=== PATIENT | female | born 1965 | race African-American/Black ===

== ENCOUNTER 2017-07-29 11:52 | Emergency (ER) | payer MEDICAID ==
[~2017-07-29] VITALS: Ht 1604.7 cm; Wt 86.0 kg
[2017-07-29 13:58] LABS: BASOPHILS # (AUTO) 0.1 X10'3 (0-0.2); BASOPHILS % (AUTO) 0.6 % (0-1); EOSINOPHILS # (AUTO) 0.1 X10'3 (0-0.9); EOSINOPHILS % (AUTO) 0.6 % (0-6); HEMOGLOBIN 14.7 g/dl (12.0-16.0); LYMPHOCYTES # (AUTO) 2.4 X10'3 (1.1-4.8); MEAN CORPUSCULAR HEMOGLOBIN 27.4 PG (27.0-31.0); MEAN CORPUSCULAR HGB CONC 32.7 % (33.0-36.5); MEAN CORPUSCULAR VOLUME 83.8 FL (78-98); MEAN PLATELET VOLUME 7.5 FL (7.4-10.4); MONOCYTES # (AUTO) 0.4 X10'3 (0-0.9); MONOCYTES % (AUTO) 3.6 % (2-12); NEUTROPHILS # (AUTO) 8.5 X10'3 (1.8-7.7); NEUTROPHILS % (AUTO) 74.2 % (42-75); PLATELET COUNT 343 X10'3 (140-440); RED BLOOD COUNT 5.37 X10'6 (4.20-5.60); WHITE BLOOD COUNT 11.4 X10'3 (4.5-11.0)
[2017-07-29 14:23] LABS: ALANINE AMINOTRANSFERASE 48 U/L (12-78); ALBUMIN 4.5 G/DL (3.4-5.0); ALKALINE PHOSPHATASE 103 IU/L (46-116); ANION GAP 10 (8-16); ASPARTATE AMINO TRANSFERASE 23 U/L (10-37); BLOOD UREA NITROGEN 12 MG/DL (7-18); BUN/CREATININE RATIO 14.8 (6.6-38.0); CALCIUM 9.6 MG/DL (8.5-10.1); CHLORIDE 100 MMOL/L (99-107); CREATININE 0.81 MG/DL (0.40-0.90); GLUCOSE 183 MG/DL (70-104); POTASSIUM 3.8 MMOL/L (3.5-5.1); SODIUM 140 MMOL/L (135-145); TOTAL CARBON DIOXIDE 30.2 MMOL/L (24-32); eGFR 75 ML/MIN
[2017-07-29 14:26] LABS: ETHANOL < 0.010 GM/DL (0.0-0.010)
[2017-07-29 14:38] LABS: URINE HCG NEGATIVE (NEG)
[2017-07-29 14:45] LABS: CLARITY,URINE CLEAR (Clear); COLOR,URINE YELLOW (Yellow); GLUCOSE, URINE NEGATIVE (Neg); KETONES,URINE NEGATIVE (Neg); LEUKOCYTE ESTERASE ,URINE NEGATIVE (Neg); NITRITES, URINE NEGATIVE (Neg); OCCULT BLOOD,URINE MODERATE (Neg); PROTEIN,URINE NEGATIVE (Neg); UROBILINOGEN,URINE 0.2 E.U/dL (0.2-1.0)
[2017-07-29 14:49] LABS: UA COLLECTION TYPE CLN CATCH MIDSTREAM
[2017-07-29 14:51] LABS: URINE AMPHETAMINE SCREEN NEGATIVE (Neg); URINE BARBITUATE SCREEN NEGATIVE (Neg); URINE BENZODIAZEPINES SCREEN NEGATIVE (Neg); URINE CANNABINOID SCREEN NEGATIVE (Neg); URINE COCAINE SCREEN NEGATIVE (Neg); URINE METHADONE SCREEN NEGATIVE (Neg); URINE OPIATE SCREEN NEGATIVE (Neg); URINE PHENCYCLIDINE SCREEN NEGATIVE (Neg)
[2017-07-29 14:52] LABS: BACTERIA,URINE NONE SEEN /HPF (Neg); RBC,URINE 0-2 /HPF (0-2); SQUAMOUS EPITHELIAL CELL,UR FEW /LPF (FEW); WBC,URINE 0-4 /HPF (0-4)
[2017-07-29] MEDS ORDERED: METO-384 PO (16:34)
[2017-07-29] MEDS ORDERED: NPH,100V SQ (16:34)
[2017-07-29] MEDS ORDERED: OLAN5TAB5 PO (16:34)
[2017-07-29] MEDS ORDERED: metoprolol tartrate 25mg tablet PO ONE (17:25)
[2017-07-29] MEDS ORDERED: risperiDONE 2mg tablet PO SCH (17:30)
[2017-07-29] MEDS: NPH, human insulin isophane inj. SQ SCH (18:50)
[2017-07-29] MEDS ORDERED: risperiDONE 2mg tablet PO ONE (20:00)
[2017-07-29] MEDS ORDERED: LORazepam 1 MG tablet PO STA (20:42)
[2017-07-30] MEDS: risperiDONE 0.5mg tablet PO SCH ×2 (08:03→19:45)
[2017-07-30] MEDS: NPH, human insulin isophane inj. SQ SCH ×2 (08:05→17:55)
[2017-07-30] MEDS ORDERED: LORazepam 1 MG tablet PO ONE ×2 (08:05→19:40)
[2017-07-30] MEDS: metoprolol succinate 25mg (24-HOUR) SR. Tablet PO SCH (08:11)
[2017-07-31] MEDS ORDERED: traZODone 50mg tablet PO ONE
[2017-07-31] MEDS ORDERED: haloperidol lactate 5mg/ml inj IM ONE ×2 (04:10→06:55)
[2017-07-31] MEDS ORDERED: LORazepam 2 mg/ml vial IM ONE ×2 (04:10→06:55)
[2017-07-31] MEDS: metoprolol succinate 25mg (24-HOUR) SR. Tablet PO SCH (08:05)
[2017-07-31] MEDS: risperiDONE 0.5mg tablet PO SCH ×2 (08:05→20:17)
[2017-07-31] MEDS: NPH, human insulin isophane inj. SQ SCH ×2 (08:56→20:28)
[2017-07-31] MEDS ORDERED: traZODone 150mg tablet PO STA (20:16)
[2017-07-31] MEDS ORDERED: LORazepam 1 MG tablet PO ONE (20:20)
[2017-08-01] MEDS: risperiDONE 0.5mg tablet PO SCH ×2 (08:54→20:30)
[2017-08-01] MEDS: metoprolol succinate 25mg (24-HOUR) SR. Tablet PO SCH (08:54)
[2017-08-01] MEDS: NPH, human insulin isophane inj. SQ SCH ×2 (08:54→17:45)
[2017-08-01] MEDS: traZODone 150mg tablet PO SCH (23:57)
[2017-08-02] MEDS: NPH, human insulin isophane inj. SQ SCH ×2 (07:30→17:20)
[2017-08-02] MEDS: risperiDONE 0.5mg tablet PO SCH ×2 (07:36→19:56)
[2017-08-02] MEDS: metoprolol succinate 25mg (24-HOUR) SR. Tablet PO SCH (07:36)
[2017-08-02] MEDS: traZODone 150mg tablet PO SCH (19:56)
[2017-08-02] MEDS ORDERED: traZODone 150mg tablet PO SCH (20:00)
[2017-08-03] MEDS: NPH, human insulin isophane inj. SQ SCH (07:30)
[2017-08-03] MEDS: metoprolol succinate 25mg (24-HOUR) SR. Tablet PO SCH (08:29)
[2017-08-03] MEDS: risperiDONE 0.5mg tablet PO SCH ×2 (08:29→21:02)
[2017-08-03] MEDS ORDERED: dextrose 50%-water 50ml dispensing syringe IV PRN ×2 (08:40)
[2017-08-03] MEDS ORDERED: glucagon, human recombinant 1mg kit SUBCUT PRN (08:40)
[2017-08-03] MEDS ORDERED: dextrose ORAL solution 15 GM/59 ML bottle PO PRN ×2 (08:40)
[2017-08-03] MEDS ORDERED: [UNRECOGNIZED DRUG - OTHER] SQ SCH (19:34)
[2017-08-03] MEDS ORDERED: RISP1TAB13 PO (20:53)
[2017-08-03] MEDS ORDERED: TRAZ-143 PO (20:54)
[2017-08-03] MEDS: traZODone 150mg tablet PO SCH (21:03)
[2017-08-03 22:31] VITALS: BP 149/94
== END 2017-08-03 22:38 | disposition home or self-care (01) ==
LOC: ER 11:53
DX: F23 Brief psychotic disorder (principal); E10.65 Type 1 diabetes mellitus with hyperglycemia; I10 Essential (primary) hypertension; Z79.899 Other long term (current) drug therapy
CPT/HCPCS: 36415; 80053; 80305; 80320; 81001; 81025; 82948; 83605; 84443; 85025; 87040; 96372; 99285

== ENCOUNTER 2020-05-29 00:16 | Emergency (ER) | payer MEDICAID ==
[~2020-05-29] VITALS: Ht 167.6 cm; Wt 67.3 kg
[~2020-05-29 00:16] MED LIST: ERGO500041 PO; ERTU15TA PO; METF1000 PO; METO100T7 PO
[2020-05-29] MEDS ORDERED: normal saline 1000ml 1,000 ML IV ONE ×2 (01:15→02:15)
[2020-05-29 01:26] LABS: BASOPHILS # (AUTO) 0.1 X10'3 (0-0.2); BASOPHILS % (AUTO) 0.7 % (0-1); EOSINOPHILS % (AUTO) 0 % (0-6); HEMOGLOBIN 15.3 g/dl (12.0-16.0); LYMPHOCYTES # (AUTO) 1.6 X10'3 (1.1-4.8); MEAN CORPUSCULAR HEMOGLOBIN 27.4 PG (27.0-31.0); MEAN CORPUSCULAR HGB CONC 32.6 g/dL (33.0-36.5); MEAN PLATELET VOLUME 7.2 FL (7.4-10.4); MONOCYTES # (AUTO) 0.7 X10'3 (0-0.9); MONOCYTES % (AUTO) 4.9 % (2-12); NEUTROPHILS # (AUTO) 12.3 X10'3 (1.8-7.7); NEUTROPHILS % (AUTO) 83.4 % (42-75); PLATELET COUNT 370 X10'3 (140-440); RED CELL DISTRIBUTION WIDTH 15.5 % (11.5-14.5); WHITE BLOOD COUNT 14.8 X10'3 (4.5-11.0)
[2020-05-29 01:40] LABS: ALANINE AMINOTRANSFERASE 32 U/L (12-78); ALBUMIN 4.9 G/DL (3.4-5.0); ALBUMIN/GLOBULIN RATIO 1.2 (1.1-1.5); ALKALINE PHOSPHATASE 81 IU/L (46-116); ANION GAP 12 (8-16); ASPARTATE AMINO TRANSFERASE 16 U/L (10-37); BILIRUBIN,TOTAL 1.3 MG/DL (0.1-1.0); BLOOD UREA NITROGEN 17 MG/DL (7-18); BUN/CREATININE RATIO 18.1 (6.6-38.0); CALCIUM 10.4 MG/DL (8.5-10.1); CHLORIDE 101 MMOL/L (99-107); CREATININE 0.94 MG/DL (0.40-0.90); GLUCOSE 317 MG/DL (70-104); POTASSIUM 3.7 MMOL/L (3.5-5.1); SODIUM 141 MMOL/L (135-145); TOTAL CARBON DIOXIDE 28.3 MMOL/L (24-32); eGFR 75 ML/MIN
[2020-05-29] MEDS ORDERED: metoprolol tartrate 50mg tablet PO ONE (02:15)
[2020-05-29 03:35] VITALS: BP 139/116
== END 2020-05-29 03:37 ==
LOC: ER 00:16
DX: I10 Essential (primary) hypertension (principal); R00.0 Tachycardia, unspecified; E11.65 Type 2 diabetes mellitus with hyperglycemia; Z79.899 Other long term (current) drug therapy; Z79.84 Long term (current) use of oral hypoglycemic drugs
CPT/HCPCS: 36415; 80053; 84443; 85025; 93005; 96360; 96361; 99284; J7030